=== PATIENT | male | born 1950 | race Caucasian/White ===

== ENCOUNTER 2017-11-13 05:26 | Inpatient (IN) | payer MEDICARE ==
[~2017-11-13] VITALS: Ht 172.7 cm; Wt 100.0 kg
[~2017-11-13 05:26] MED LIST: ASPI-1264 PO; ATOR40TA PO; CAR2T PO; CARV25TA2 PO; CLOP75TA35 PO; EFF25T PO; FINA5TAB11 PO; FURO80TA87 PO; GABA-532 PO; GLIM4TAB79 PO; INSU300I SQ; METF500T PO; NYST1POW5 TOP; PANT-47 PO; SACU1TAB7 PO; SPIR25TA3 PO; ZAR2.5T PO
[2017-11-13] MEDS ORDERED: normal saline 1000ml 1,000 ML IV ONE ×3 (05:29→07:25)
[2017-11-13] MEDS ORDERED: azithromycin/NS 500mg/250ml 250 ML IV ONE (05:30)
[2017-11-13] MEDS ORDERED: albuterol 2.5 MG/3 ML nebule NEB ONE (05:30)
[2017-11-13] MEDS ORDERED: CefTRIAXone 2gm/D5W 50ml 50 ML IV ONE (05:30)
[2017-11-13] MEDS ORDERED: methylPREDNISolone sod succ 125mg/2ml vial IV ONE (05:35)
[2017-11-13] MEDS ORDERED: midazolam 2 mg/2 ml injection ONE (06:01)
[2017-11-13 06:06] LABS: BASOPHILS # (AUTO) 0.1 X10'3 (0-0.2); BASOPHILS % (AUTO) 0.5 % (0-1); EOSINOPHILS % (AUTO) 0 % (0-6); HEMATOCRIT 42.5 % (42.0-52.0); HEMOGLOBIN 14.1 g/dl (14.0-17.9); LYMPHOCYTES # (AUTO) 2.4 X10'3 (1.1-4.8); LYMPHOCYTES % (AUTO) 14.9 % (21-51); MEAN CORPUSCULAR HEMOGLOBIN 28.4 PG (27.0-31.0); MEAN CORPUSCULAR HGB CONC 33.2 % (33.0-36.5); MEAN CORPUSCULAR VOLUME 85.6 FL (78-98); MEAN PLATELET VOLUME 9.1 FL (7.4-10.4); MONOCYTES # (AUTO) 0.8 X10'3 (0-0.9); NEUTROPHILS % (AUTO) 79.6 % (42-75); PLATELET COUNT 350 X10'3 (140-440); RED BLOOD COUNT 4.96 X10'6 (4.70-6.10); RED CELL DISTRIBUTION WIDTH 16.7 % (11.5-14.5); WHITE BLOOD COUNT 16.4 X10'3 (4.5-11.0)
[2017-11-13] MEDS: midazolam 100mg in NS 100ml 100 ML IV PRN ×3 (06:08→08:02)
[2017-11-13 06:10] LABS: ABG BASE EXCESS -27.8 mmol/L (-2.0-3.0); ABG HCO3 5.1 mmol/L (22.0-26.0); ABG PCO2 (T) 26.9 mmHg (35.0-48.0); ABG PH (T) 6.886 (7.350-7.450); ABG PO2 (T) 124.8 mmHg (83-108); FCOHb 1.1 % (0.5-1.5); FMetHb 0.3 % (0.3-1.12); FO2Hb 93.7 % (94-100); MINUTE VOLUME 9 L/min; PATIENT TEMPERATURE 35.8; PEEP 5 cm H2O; RESPIRATORY RATE 14 b/min; RESPIRATORY RATE (OBSERVED) 16 b/min; TIDAL VOLUME 500 mL; TOTAL HEMOGLOBIN 15.2 G/dl (14.0-18.0)
[2017-11-13 06:16] LABS: INR 1.5 INR; PARTIAL THROMBOPLASTIN TIME 32 SECONDS (22-32); PROTHROMBIN TIME 15.5 SECONDS (9.0-12.0)
[2017-11-13 06:30] LABS: ALANINE AMINOTRANSFERASE 863 U/L (12-78); ALBUMIN 3.1 G/DL (3.4-5.0); ALBUMIN/GLOBULIN RATIO 0.8 (1.1-1.5); ALKALINE PHOSPHATASE 315 IU/L (46-116); ANION GAP 35 (8-16); BILIRUBIN,TOTAL 1.1 MG/DL (0.1-1.0); BLOOD UREA NITROGEN 52 MG/DL (7-18); BUN/CREATININE RATIO 16.1 (5.4-32.0); CALCIUM 6.9 MG/DL (8.5-10.1); CHLORIDE 95 MMOL/L (99-107); CREATININE 3.22 MG/DL (0.60-1.10); GLUCOSE 126 MG/DL (70-104); MAGNESIUM 1.5 MG/DL (1.5-2.4); SODIUM 139 MMOL/L (135-145); TOTAL PROTEIN 6.8 G/DL (6.4-8.2); eGFR 19 ML/MIN
[2017-11-13] MEDS ORDERED: vancomycin/NS 1 GM ADD-VANTAGE 250 ML IV ONE (06:30)
[2017-11-13 06:32] LABS: ASPARTATE AMINO TRANSFERASE 1520 U/L (10-37); PHOSPHORUS 12.1 MG/DL (2.3-4.5); POTASSIUM 4.7 MMOL/L (3.5-5.1)
[2017-11-13] MEDS ORDERED: normal saline 1000ML IV soln IVB ONE ×2 (06:35→07:25)
[2017-11-13 06:47] LABS: TOTAL CARBON DIOXIDE 9.4 MMOL/L (24-32)
[2017-11-13] MEDS ORDERED: METF500T7 PO (06:57)
[2017-11-13] MEDS ORDERED: TRAM50TA2 PO (07:00)
[2017-11-13] MEDS ORDERED: MOME13HF INH (07:00)
[2017-11-13] MEDS ORDERED: midazolam 100mg in NS 100ml 100 ML IV PRN (07:07)
[2017-11-13] MEDS ORDERED: normal saline 1000ml 1,000 ML IV SCH (07:07)
[2017-11-13] MEDS ORDERED: FENTANYL-0.9 % NACL/PF 100 ML IV PRN (07:07)
[2017-11-13] MEDS ORDERED: potassium Cl 20 mEq SR tablet PO PRN ×2 (07:10)
[2017-11-13] MEDS ORDERED: acetaminophen 325mg tablet PO PRN ×2 (07:10)
[2017-11-13] MEDS ORDERED: morphine 4 MG/ML inj SYRINge IV PRN ×2 (07:10)
[2017-11-13] MEDS ORDERED: ondansetron/PF 4mg/2ml inj IV PRN (07:10)
[2017-11-13] MEDS ORDERED: potassium Cl 40MEQ/250ML bag 250 ML IV SCH (07:10)
[2017-11-13] MEDS: K, MAG and/or Phos replacement - Verify level? MC SCH ×2 (07:10→08:00)
[2017-11-13] MEDS ORDERED: ipratropium/albuterol 3ml nebule NEB PRN (07:10)
[2017-11-13] MEDS ORDERED: potassium Cl 40MEQ/250ML bag 250 ML IV PRN (07:10)
[2017-11-13 07:28] LABS: TOTAL CELLS COUNTED 100
[2017-11-13 07:29] LABS: ANISOCYTOSIS 1+; BURR CELLS 2+; PLATELET ESTIMATE NORMAL
[2017-11-13 07:30] LABS: POLYCHROMASIA 1+
[2017-11-13] MEDS ORDERED: sod chloride 0.9% 10ml flush syringe IV ONE (08:00)
[2017-11-13] MEDS ORDERED: epiNEPHrine 0.1mg/ml 10ml syringe ONE (08:00)
[2017-11-13] MEDS ORDERED: pantoprazole 40 MG vial IV SCH (08:00)
[2017-11-13] MEDS: NORepinephrine 8mg/ 250ml NS 250 ML IV PRN ×2 (08:02→08:11)
[2017-11-13 08:22] VITALS: BP 98/50
[2017-11-14] MEDS ORDERED: mineral oil/petrolatum ophthal oint EACHEYE SCH (08:00)
== END 2017-11-13 10:00 | disposition expired | DRG 871 ==
LOC: ER 05:26 → ED HOLD 07:07
PROVIDERS: ADMIT Internal Medicine Critical Care Medicine; ATTEND Emergency Medicine
PROC: 0BH17EZ Insertion of Endotracheal Airway into Trachea, Via Natural or Artificial Opening (ICD-10-PCS; principal; 2017-11-13)
PROC: 5A1935Z Respiratory Ventilation, Less than 24 Consecutive Hours (ICD-10-PCS; 2017-11-13)
PROC: 5A12012 Performance of Cardiac Output, Single, Manual (ICD-10-PCS; 2017-11-13)
PROC: 02HV33Z Insertion of Infusion Device into Superior Vena Cava, Percutaneous Approach (ICD-10-PCS; 2017-11-13)
DX: A41.9 Sepsis, unspecified organism (principal); J96.90 Respiratory failure, unspecified, unspecified whether with hypoxia or hypercapnia; N17.9 Acute kidney failure, unspecified; I11.0 Hypertensive heart disease with heart failure; K72.90 Hepatic failure, unspecified without coma; I50.9 Heart failure, unspecified; I25.10 Atherosclerotic heart disease of native coronary artery without angina pectoris; K21.9 Gastro-esophageal reflux disease without esophagitis; R65.20 Severe sepsis without septic shock; N40.0 Benign prostatic hyperplasia without lower urinary tract symptoms; E11.9 Type 2 diabetes mellitus without complications; G89.29 Other chronic pain; M54.9 Dorsalgia, unspecified; F32.9 Major depressive disorder, single episode, unspecified; Z90.49 Acquired absence of other specified parts of digestive tract; I25.2 Old myocardial infarction; Z79.899 Other long term (current) drug therapy; Z79.4 Long term (current) use of insulin; Z79.82 Long term (current) use of aspirin; Z79.84 Long term (current) use of oral hypoglycemic drugs; Z80.9 Family history of malignant neoplasm, unspecified
CPT/HCPCS: 36415; 36556; 36600; 71045; 80053; 82803; 83605; 83735; 83880; 84100; 84145; 84484; 85018; 85025; 85610; 85730; 86870; 86885; 86900; 86901; 87040; 93005; 93306; 94002; 94640; 94760; 96361; 96365; 96368; 96375; 99291; 99292; A7526; C1751; C1758; C9113; J0171; J0456; J0696; J2250; J2930; J3370; J7030